=== PATIENT | male | born 1995 | race Two or more races ===

== ENCOUNTER 2019-04-13 16:57 | Emergency (ER) | payer MEDICAID ==
[~2019-04-13] VITALS: Ht 175.3 cm; Wt 97.0 kg
[2019-04-13 19:12] LABS: BASOPHILS % 0.6 % (0.0-2.0); EOSINOPHILS % 1.4 % (0.0-5.0); HEMATOCRIT. 42.8 % (42.0-52.0); HEMOGLOBIN. 14.4 g/dL (14.0-18.0); LYMPHOCYTES % 31.5 % (20.0-50.0); MEAN CORPUSCULAR HEMOGLOBIN 30.9 pg (28.0-32.0); MEAN CORPUSCULAR VOLUME 91.8 fL (80.0-94.0); MEAN PLATELET VOLUME 8.9 fl (7.4-10.4); MONOCYTES % 11.9 % (2.0-8.0); NEUTROPHILS % 54.6 % (40.0-76.0); PLATELET 153 x1000/uL (130-400); RED BLOOD CELL COUNT 4.66 mill/uL (4.7-6.1); RED CELL DISTRIBUTION WIDTH 13.5 % (11.6-14.6)
[2019-04-13 19:17] LABS: CHLORIDE 105 mEq/L (98-107)
[2019-04-13 19:22] LABS: ETHANOL BLOOD < 10 mg/dL
[2019-04-13] MEDS ORDERED: IBUPROFEN 600MG TABLET PO STA (19:44)
[2019-04-13 22:32] LABS: CLARITY URINE CLEAR (CLEAR); COLOR URINE YELLOW (YELLOW); KETONES URINE NEGATIVE (NEGATIVE); LEUKOCYTE ESTERASE URINE NEGATIVE (NEGATIVE); NITRITE URINE NEGATIVE (NEGATIVE); OCCULT BLOOD URINE NEGATIVE (NEGATIVE); PROTEIN URINE NEGATIVE (NEGATIVE); UROBILINOGEN URINE 0.2 E.U./dL (0.2-1.0)
[2019-04-13 22:46] LABS: *BARBITURATES SCREEN URINE NEGATIVE (NEGATIVE); *BENZODIAZEPINES SCREEN URINE NEGATIVE (NEGATIVE); *COCAINE SCREEN URINE NEGATIVE (NEGATIVE)
[2019-04-13 22:48] LABS: *AMPHETAMINES SCREEN URINE NEGATIVE (NEGATIVE); CANNABINOID URINE SCREEN NEGATIVE (NEGATIVE); METHADONE URINE SCREEN NEGATIVE (NEGATIVE); OPIATES URINE SCREEN NEGATIVE (NEGATIVE); PHENCYCLIDINE URINE SCREEN NEGATIVE (NEGATIVE)
[2019-04-14 15:05] VITALS: BP 121/89
== END 2019-04-14 15:21 | disposition home or self-care (01) ==
LOC: ER 16:57
DX: R45.851 Suicidal ideations (principal); F43.21 Adjustment disorder with depressed mood; R51 Headache; R53.1 Weakness; Z63.4 Disappearance and death of family member; Z59.0 Homelessness
CPT/HCPCS: 36415; 80048; 80305; 80307; 80320; 80329; 81003; 85025; 99284; Z7610; G0480